=== PATIENT | male | born 1965 ===

== ENCOUNTER 2017-04-29 15:02 | Emergency (ER) | payer OTHER ==
[2017-04-29] MEDS ORDERED: Morphine 4 MG/ML VIAL ONE (15:06)
[2017-04-29] MEDS ORDERED: Lidocaine 1% w Epi 1:100,000 Inj ONE (15:09)
[2017-04-29 15:27] VITALS: TEMP 98.2
[2017-04-29] MEDS ORDERED: Sodium Chloride 0.9% 2,000 ML IV ONE (15:49)
[2017-04-29] MEDS ORDERED: TDAP Vaccine 0.5 mL Syr IM ONE (15:51)
[2017-04-29] MEDS ORDERED: Morphine 4 MG/ML VIAL IVP STA (15:53)
[2017-04-29] MEDS ORDERED: ceFAZolin 1 GM in Sodium Chloride 0.9% 100 ML IVPB STA (16:06)
[2017-04-29] MEDS ORDERED: Hydrogen Peroxide 3% Soln (480ml) TP ONE (16:08)
--- NOTE | 2017-04-29 16:23 | ED PDOC ---
Upper Extremity Pain/Injury <Josue Whitt - Last Filed: 04/29/17 18:40> Chief Complaint (Provider): UE injury History Per: Patient History/Exam Limitations: no limitations Onset/Duration Of Symptoms: Hrs Current Symptoms Are (Timing): Still Present Quality: "Pain" Pain Scale Rating Of: 9 Additional Complaint(s): 51 y/o M with PMhx of HTN presents to ED for a laceration in the R/forearm. 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 HE started bleeding immediately but denies dizziness, LOC, headaches, palpitations, SOB, vomiting or nausea. Denies UE numbness, tingling or weakness. He was transported to our ED and while in the ER, he c/o severe forearm pain and was bleeding profusely from the wound. <Alvaro Jacobo - Last Filed: 04/29/17 19:00> Time Seen by Provider: 04/29/17 16:15 Chief Complaint (Nursing): Upper Extremity Problem/Injury Past Medical History Vital Signs: Last Vital Signs Temp 98.2 F 04/29/17 17:52 Pulse 77 04/29/17 17:52 Resp 18 04/29/17 17:52 BP 139/96 H 04/29/17 17:52 Pulse Ox 99 04/29/17 17:52 <Josue Whitt - Last Filed: 04/29/17 18:40> Reviewed: Historical Data, Nursing Documentation Vital Signs: Last Vital Signs Temp 98.2 F 04/29/17 15:25 Pulse 74 04/29/17 16:09 Resp 12 04/29/17 16:09 BP 146/96 H 04/29/17 16:09 Pulse Ox 99 04/29/17 16:09 - Medical History PMH: HTN - Surgical History Other surgeries: L/Chest Sx after [employer] accident - Family History Family History: States: No Known Family Hx <Alvaro Jacobo - Last Filed: 04/29/17 19:00> - Home Medications Home Medications: Ambulatory Orders Medication Instructions Recorded Cephalexin [Keflex] 500 mg PO QID 10 Days 04/29/17 oxyCODONE/Acetaminophen [Percocet 1 tab PO QID PRN #16 tab 04/29/17 5/325 mg Tab] - Allergies Allergies/Adverse Reactions: Allergies Allergy/AdvReac Type Severity Reaction Status Date / Time No Known Allergies Allergy Verified 04/29/17 15:27 Review of Systems ROS Statement: Except As Marked, All Systems Reviewed And Found Negative Musculoskeletal: Positive for: Arm Pain Skin: Positive for: Lesions (Forearm laceration with bleeding) <Alvaro Jacobo - Last Filed: 04/29/17 19:00> Physical Exam - Reviewed Nursing Documentation Reviewed: Yes Vital Signs Reviewed: Yes - Physical Exam Appears: Positive for: Uncomfortable, In Acute Distress Head Exam: Positive for: ATRAUMATIC, NORMAL INSPECTION Eye Exam: Positive for: EOMI, PERRL Cardiovascular/Chest: Positive for: Regular Rate, Rhythm. Negative for: Gallop , Murmur Respiratory: Positive for: Normal Breath Sounds. Negative for: Crackles, Wheezing Gastrointestinal/Abdominal: Positive for: Soft. Negative for: Tenderness Extremity: Positive for: Other (9 cm R/forearm linear deep laceration, actively bleeding with damaged artery) <Alvaro Jacobo - Last Filed: 04/29/17 19:00> - Laboratory Results Result Diagrams: 04/29/17 18:03 04/29/17 15:10 <Josue Whitt - Last Filed: 04/29/17 18:40> - Laboratory Results Result Diagrams: 04/29/17 18:03 04/29/17 15:10 - ECG O2 Sat by Pulse Oximetry: 99 - Progress ED Course And Treament: Patient laceration repaired. Patient tolerated well procedure MOrphine IV and Percocet PO were given for pain in 2 different occasions. Repeat Hgb 12 NO Fx seen of Xray Patient DC home with PO abx and pain meds F/U with PMD as outpatient and for suture removal <Alvaro Jacobo - Last Filed: 04/29/17 19:00> Medical Decision Making Medical Decision Makin51 y/o M with PMHx of HTN presents for traumatic forearm deep laceration Forearm laceration with arterial injury -IV fluids -Xray -CBC -Morphine 4mg IV for pain -Tetanus prophylaxis vaccine -Laceration repair with deep and superficial sutures -Observation. Will repeat CBC in 4 hours <Alvaro Jacobo - Last Filed: 04/29/17 19:00> Disposition - Patient ED Disposition Is Patient to be Admitted: No Counseled Patient/Family Regarding: Studies Performed, Diagnosis, Need For Followup, Rx Given - Disposition Disposition: Routine/Home Disposition Time: 18:40 <Josue Whitt - Last Filed: 04/29/17 18:40> <Alvaro Jacobo - Last Filed: 04/29/17 19:00> - Clinical Impression Clinical Impression: Laceration of forearm, right - Disposition Referrals: [facility] [Outside] (2 to 3 days) Condition: GOOD Prescriptions: Cephalexin [Keflex] 500 mg PO QID 10 Days oxyCODONE/Acetaminophen [Percocet 5/325 mg Tab] 1 tab PO QID PRN #16 tab PRN Reason: Pain, Moderate (4-7) Forms: [facility] (Bangladeshi) Print Language: VENEZUELAN
[2017-04-29 16:28] LABS: BASO # 0.1 K/uL (0.0-0.2); EOS # 0.3 K/uL (0.0-0.7); EOS % 4.8 % (0.0-4.0); HEMOGLOBIN 13.4 g/dL (12.0-18.0); LYMPH # 2.1 K/uL (1.0-4.3); LYMPH % 34.3 % (20.0-40.0); MEAN CELL VOLUME 89.8 fl (80.0-94.0); MEAN CORPUSCULAR HEMOGLOBIN 29.9 pg (27.0-31.0); MEAN CORPUSCULAR HGB CONC 33.3 g/dL (33.0-37.0); MEAN PLATELET VOLUME 9.1 fl (7.2-11.7); MONO # 0.7 K/uL (0.0-0.8); MONO % 10.8 % (0.0-10.0); NEUT % 49.1 % (50.0-75.0); NRBC % 0.1 % (0.0-0.0); RBC 4.5 Mil/uL (4.40-5.90); RED CELL DISTRIBUTION WIDTH 13.8 % (11.5-14.5)
[2017-04-29 16:56] LABS: BLOOD UREA NITROGEN 18 mg/dl (9-20); CALCIUM 8.6 mg/dL (8.4-10.2); GFR AFRICAN-AMERICAN > 60; GFR NON-AFRICAN AMERICAN > 60
--- NOTE | 2017-04-29 16:59 | RAD ---
PROCEDURE: Radiographs of the Right Forearm HISTORY: right arm trauma COMPARISON: None available. TECHNIQUE: Frontal and lateral views obtained. FINDINGS: BONES: No fracture or destructive lesion. JOINT SPACES: Unremarkable. OTHER FINDINGS: Soft tissue injury ventral aspect of the forearm. No visulaized radiopaque/visualized foreign body. IMPRESSION: Soft tissue swelling, findings suggestive of ventral laceration without acute articular or osseous abnormality.
[2017-04-29 17:10] VITALS: O2SAT 99
[2017-04-29] MEDS ORDERED: Oxycodone/Acetaminophen 5/325 mg Tab PO STA (17:15)
[2017-04-29] MEDS ORDERED: Oxycodone/Acetaminophen 5/325 mg Tab ONE (17:27)
[2017-04-29 17:53] VITALS: RESP 18
[2017-04-29 18:10] LABS: MEAN CELL VOLUME 89.2 fl (80.0-94.0); MEAN CORPUSCULAR HEMOGLOBIN 29.6 pg (27.0-31.0); MEAN CORPUSCULAR HGB CONC 33.2 g/dL (33.0-37.0); RBC 4.04 Mil/uL (4.40-5.90); RED CELL DISTRIBUTION WIDTH 13.7 % (11.5-14.5)
[2017-04-29 19:17] VITALS: BP 138/89; PULSE 79
== END 2017-04-29 19:16 | disposition home or self-care (01) ==
LOC: H.ER 15:02
DX: S51.811A Laceration without foreign body of right forearm, initial encounter (principal); W45.8XXA Other foreign body or object entering through skin, initial encounter; Y93.89 Activity, other specified; Y92.69 Other specified industrial and construction area as the place of occurrence of the external cause; Y99.0 Civilian activity done for income or pay

== ENCOUNTER 2017-04-30 01:27 | Emergency (ER) | payer OTHER, SELFPAY ==
[2017-04-30 01:49] VITALS: BMI 25.6
[2017-04-30 01:54] VITALS: BP 128/81; PULSE 89; RESP 18; TEMP 99.2; O2SAT 98
--- NOTE | 2017-04-30 02:02 | ED PDOC ---
Upper Extremity Pain/Injury Time Seen by Provider: 04/30/17 01:33 Chief Complaint (Nursing): Upper Extremity Problem/Injury Chief Complaint (Provider): Left arm pain, numbness in right 4th and 5th History Per: Patient History/Exam Limitations: no limitations Onset/Duration Of Symptoms: Hrs Current Symptoms Are (Timing): Still Present Additional Complaint(s): Pt was in ER earlier and laceration repair of the right forearm. Pt states he took percocet 2 hours ago but is still in severe pain. Pt states he also feels numbness in the right 4th and 5th digits Past Medical History Reviewed: Historical Data, Nursing Documentation, Vital Signs Vital Signs: Last Vital Signs Temp 99.2 F 04/30/17 01:43 Pulse 89 04/30/17 01:43 Resp 18 04/30/17 01:43 BP 128/81 04/30/17 01:43 Pulse Ox 98 04/30/17 01:43 - Medical History PMH: HTN - Surgical History Surgical History: No Surg Hx - Family History Family History: States: No Known Family Hx - Home Medications Home Medications: Ambulatory Orders Medication Instructions Recorded Cephalexin [Keflex] 500 mg PO QID 10 Days 04/29/17 oxyCODONE/Acetaminophen [Percocet 1 tab PO QID PRN #16 tab 04/29/17 5/325 mg Tab] Ibuprofen [Motrin Tab] 800 mg PO Q6H PRN #20 tab 04/30/17 - Allergies Allergies/Adverse Reactions: Allergies Allergy/AdvReac Type Severity Reaction Status Date / Time No Known Allergies Allergy Verified 04/30/17 01:42 Review of Systems ROS Statement: Except As Marked, All Systems Reviewed And Found Negative Musculoskeletal: Positive for: Arm Pain, Other Skin: Positive for: Other Physical Exam - Reviewed Nursing Documentation Reviewed: Yes Vital Signs Reviewed: Yes - Physical Exam Appears: Positive for: Well, Non-toxic, No Acute Distress Head Exam: Positive for: ATRAUMATIC, NORMAL INSPECTION, NORMOCEPHALIC Skin: Positive for: Normal Color (Dressing was not removed but remain dry and intact, no bleeding through dressing ), Warm Eye Exam: Positive for: Normal appearance ENT: Positive for: Normal ENT Inspection Neck: Positive for: Normal, Painless ROM Respiratory: Negative for: Accessory Muscle Use, Respiratory Distress Pulses-Radial (L): 2+ Pulses-Radial (R): 2+ Back: Positive for: Normal Inspection Extremity: Positive for: Normal ROM (Normal in right hand and wrist. Pt reports forearm pain with wrist ROM), Capillary Refill (Normal ). Negative for: Deformity, Swelling Neurologic/Psych: Positive for: Alert, Oriented - ECG O2 Sat by Pulse Oximetry: 98 Pulse Ox Interpretation: Normal Disposition - Clinical Impression Clinical Impression: Laceration of forearm, right, Neuropathy - Patient ED Disposition Is Patient to be Admitted: No - Disposition Disposition: Routine/Home Disposition Time: 02:12 Condition: GOOD Prescriptions: Ibuprofen [Motrin Tab] 800 mg PO Q6H PRN #20 tab PRN Reason: Pain Instructions: Peripheral Neuropathy (ED) Print Language: FAROESE
== END 2017-04-30 03:03 | disposition home or self-care (01) ==
LOC: H.ER 01:27
DX: G62.9 Polyneuropathy, unspecified (principal); I10 Essential (primary) hypertension

== ENCOUNTER 2017-05-03 10:33 | Emergency (ER) | payer SELFPAY ==
[2017-05-03 10:40] VITALS: BP 137/87; PULSE 73; TEMP 98; O2SAT 98
[2017-05-03 10:41] VITALS: BMI 27.5
--- NOTE | 2017-05-03 11:39 | ED PDOC ---
HPI: Wound Care - HPI Time Seen by Provider: 05/03/17 10:45 Chief Complaint (Nursing): Wound Check Chief Complaint (Provider): WOUND CHECK History Per: Patient (51 Y/O MALE HERE FOR WOUND CHECK FOR FOREARM INJURY THAT OCCURRED 04/29/2017 FROM [place]. HAD ARTERIAL REPAIR AT THAT TIME AND HAS BEEN ON ORAL ANTIBIOTICS. PATIENT NOTES NUMBNESS AND WEAKNESS ALONG 4/5 DIGITS. HAS OLD INJURY YOUTH WITH FOURTH AND FIFTH DIGITS WITH DIFFICULTY FULL EXTENSION AT DIP.) Past Medical History Reviewed: Historical Data, Nursing Documentation, Vital Signs Vital Signs: Last Vital Signs Temp 98 F 05/03/17 10:38 Pulse 73 05/03/17 10:38 Resp BP 137/87 05/03/17 10:38 Pulse Ox 98 05/03/17 10:38 - Medical History PMH: HTN - Family History Family History: States: No Known Family Hx - Home Medications Home Medications: Ambulatory Orders Medication Instructions Recorded Cephalexin [Keflex] 500 mg PO QID 10 Days 04/29/17 oxyCODONE/Acetaminophen [Percocet 1 tab PO QID PRN #16 tab 04/29/17 5/325 mg Tab] Ibuprofen [Motrin Tab] 800 mg PO Q6H PRN #20 tab 04/30/17 - Allergies Allergies/Adverse Reactions: Allergies Allergy/AdvReac Type Severity Reaction Status Date / Time No Known Allergies Allergy Verified 04/30/17 01:42 Review of Systems ROS Statement: Except As Marked, All Systems Reviewed And Found Negative Physical Exam - Reviewed Nursing Documentation Reviewed: Yes Vital Signs Reviewed: Yes - Physical Exam Appears: Positive for: Well, Non-toxic, No Acute Distress Head Exam: Positive for: ATRAUMATIC, NORMAL INSPECTION, NORMOCEPHALIC Skin: Positive for: Normal Color, Warm, DRY Eye Exam: Positive for: EOMI, Normal appearance, PERRL ENT: Positive for: Normal ENT Inspection Neck: Positive for: Normal, Painless ROM Cardiovascular/Chest: Positive for: Regular Rate, Rhythm Respiratory: Positive for: CNT, Normal Breath Sounds Gastrointestinal/Abdominal: Positive for: Normal Exam, Bowel Sounds, Soft Back: Positive for: Normal Inspection Extremity: Positive for: Other (9 CM WOUND SUTURED WELL HEALING VOLAR SURFACE OF FOREARM. LACK OF SENSATION NOTED FOURTH/FIFTH DIGIT. PATIENT NOTED WITH INTERROSEUS WEAKNESS WITH ADDUCTION/ABDUCTION OF DIGITS. HAS DIFFICULTY WITH FULL EXTENSION OF FOURTH AND FIFTH DIGIT (OLD INJURY TO DIP BOTH DIGITS PER PATIENT).). Negative for: Normal ROM Neurologic/Psych: Positive for: Alert, Oriented - ECG O2 Sat by Pulse Oximetry: 98 - Progress ED Course And Treament: DUPLEX: TRIPHASIC WAVE NOTED THROUGHTOUT ARM NO SIGNS OF ARTERIAL INJURY D/W DR. FRITZ D/W DR. DOMINGUEZ. PLACED IN ULNAR GUTTER SPLINT. D/W FAMILY MED RESIDENT FOR ORTHO CLINIC F/U. APPT FOR MAY 17 2:20PM WITH DR. GONSALEZ PATIENT WILL F/U WITH [facility]. Disposition - Clinical Impression Clinical Impression: Ulnar nerve injury - Patient ED Disposition Is Patient to be Admitted: No - Disposition Referrals: [facility] [Outside] [facility] [Outside] Disposition: Routine/Home Disposition Time: 15:55 Condition: FAIR Additional Instructions: TIENE INGA MATT 2:20PM EN TARDE CON DR. GONSALEZ PARA OBTENER INGA REFERIDA PARA ORTEPEDISTA NECESITA HACER INGA MATT [facility] PARA INGA REFEREDA PARA NEUROLOGICO. REGRESA EN 7 SCHILLING PARA QUITAR PUNTOS Instructions: Paresthesia (ED), Acute Wound Care (ED) Forms: [facility] (Montenegrin), [employer] [facility] (Estonian) Print Language: ALGERIAN
--- NOTE | 2017-05-03 14:38 | US ---
PROCEDURE: HISTORY: EVALUATE FOR ARTERIAL INJURY ULNAR/RADIAL COMPARISON: None available. TECHNIQUE: Grayscale and duplex Doppler evaluation of the right upper extremity was performed. Report prepared by cath lab radiological technologist. FINDINGS: RIGHT UPPER EXTREMITY: * Prox SCA : Peak Systolic Velocity - 76.1: Doppler Waveform: Triphasic.: * Axillary: Peak Systolic Velocity - 86.1: Doppler Waveform: Triphasic.: * Brachial o Proximal Segment: Peak Systolic Velocity - 55.9: Doppler Waveform: Triphasic.: * Radial o Proximal Segment: Peak Systolic Velocity - 66.0: Doppler Waveform: Triphasic.: * Ulnar o Proximal Segment: Peak Systolic Velocity - 38.3: Doppler Waveform: Triphasic.: OTHER FINDINGS: None. IMPRESSION: There is no evidence of hemodynamically significant arterial insufficiency in right upper extremity.
== END 2017-05-03 16:31 | disposition home or self-care (01) ==
LOC: H.ER 10:33
DX: S54.01XD Injury of ulnar nerve at forearm level, right arm, subsequent encounter (principal); W26.9XXD Contact with unspecified sharp object(s), subsequent encounter; Z48.01 Encounter for change or removal of surgical wound dressing

== ENCOUNTER 2017-05-10 09:24 | Emergency (ER) | payer SELFPAY ==
[2017-05-10 09:24] VITALS: BMI 27.5
[2017-05-10 09:57] VITALS: BP 136/65; PULSE 77; RESP 18; TEMP 98; O2SAT 99
--- NOTE | 2017-05-10 10:07 | ED PDOC ---
HPI: Wound Care - HPI Time Seen by Provider: 05/10/17 09:46 Chief Complaint (Nursing): Wound Check Chief Complaint (Provider): Wound check History Per: Patient Exam Limitations: no limitations Onset/Duration Of Symptoms: Days Current Symptoms Are (Timing): Better Location Of Injury: Right: Forearm Additional History Per: Patient Additional Complaint(s): 51 y/o M presents for f/u on R/forearm laceration sustained on 04/29/17 that needed arterial repair and deep and superficial sutures. Patient still c/o occasional numbness in ulnar distribution R/hand and mild weakness with extension of 4th and 5th digits of same hand but this has been present for many years since a previous trauma when he was young. Patient has been taking Ibuprofen for pain but ran out of meds and today c/o moderate intermittent pain in the right wrist. He has appt with Dr Light at [facility] on 05/17/17 and was adviced to go to [facility] for neuro eval, as patient has no health insurance. Denies fever, vomiting, headache, severe pain or skin color changes in the hand and wrist. Past Medical History Reviewed: Vital Signs Vital Signs: Last Vital Signs Temp 98 F 05/10/17 09:55 Pulse 77 05/10/17 09:55 Resp 18 05/10/17 09:55 BP 136/65 05/10/17 09:55 Pulse Ox 99 05/10/17 09:55 - Medical History PMH: HTN - Family History Family History: States: Unknown Family Hx - Home Medications Home Medications: Ambulatory Orders Medication Instructions Recorded Cephalexin [Keflex] 500 mg PO QID 10 Days 04/29/17 oxyCODONE/Acetaminophen [Percocet 1 tab PO QID PRN #16 tab 04/29/17 5/325 mg Tab] Ibuprofen [Motrin Tab] 800 mg PO Q6H PRN #20 tab 04/30/17 Naproxen [Naprosyn] 500 mg PO BID PRN #15 tablet 05/10/17 - Allergies Allergies/Adverse Reactions: Allergies Allergy/AdvReac Type Severity Reaction Status Date / Time No Known Allergies Allergy Verified 04/30/17 01:42 Review of Systems ROS Statement: Except As Marked, All Systems Reviewed And Found Negative Neurological: Positive for: Numbness (R/hand 4th, 5th digits) Physical Exam - Reviewed Nursing Documentation Reviewed: Yes Vital Signs Reviewed: Yes - Physical Exam Appears: Positive for: Non-toxic, No Acute Distress Head Exam: Positive for: NORMAL INSPECTION Skin: Positive for: Normal Color, Warm Eye Exam: Positive for: EOMI, PERRL Cardiovascular/Chest: Positive for: Regular Rate, Rhythm. Negative for: Gallop Respiratory: Positive for: Normal Breath Sounds. Negative for: Crackles, Wheezing Pulses-Radial (L): 2+ Pulses-Radial (R): 2+ Extremity: Negative for: Tenderness, Deformity, Swelling DTR - Bicep (R): 2+ DTR - Bicep (L): 2+ DTR - Tricep (R): 2+ DTR - Tricep (L): 2+ Neurologic/Psych: Positive for: Alert, Oriented - ECG O2 Sat by Pulse Oximetry: 99 - Progress ED Course And Treament: Dressing and cast(placed last visit) removed. Wound was wet(patient applying Abx ointment daily). No bleeding, drainage. Stitches in place. We proceed to remove stitches, middle of the wound edges weren't well attached superficially. Rest WNL. Dermabond applied to middle 3rd of the wound. Disposition - Clinical Impression Clinical Impression: Encounter for wound re-check - Patient ED Disposition Is Patient to be Admitted: No Counseled Patient/Family Regarding: Need For Followup - Disposition Disposition: Routine/Home Disposition Time: 10:35 Condition: GOOD Additional Instructions: Tiene daniel en [facility] 05/17/[address] Light. Puede ir a [facility] para ser evaluado por neurologo. Pudiera ser referido a [facility] en william de ser necesario, luego de daniel en [facility]. Mantenga herida seca Evite levantar pesos Hacer ejercisios en las antonio y lacho para prevenir rigidez y acelerar proceso de recuperacion. Prescriptions: Naproxen [Naprosyn] 500 mg PO BID PRN #15 tablet PRN Reason: Pain, Moderate (4-7) Instructions: Skin Adhesive Care (ED) Forms: [employer] (Uzbek) Print Language: ARMENIAN
== END 2017-05-10 11:05 | disposition home or self-care (01) ==
LOC: H.ER 09:24
DX: Z48.01 Encounter for change or removal of surgical wound dressing (principal)

== ENCOUNTER 2018-01-24 08:53 | Emergency (ER) | payer SELFPAY ==
[2018-01-24 09:05] VITALS: BMI 31.4
--- NOTE | 2018-01-24 10:12 | ED PDOC ---
Lower Extremity Pain/Injury Time Seen by Provider: 01/24/18 09:17 Chief Complaint (Nursing): Lower Extremity Problem/Injury Chief Complaint (Provider): Right knee pain History Per: Patient History/Exam Limitations: no limitations Onset/Duration Of Symptoms: Days (x1 week) Current Symptoms Are (Timing): Still Present Additional Complaint(s): Barrera Sainz is a 52 year old male, with a past medical history of HTN, who presents to the emergency department complaining of right knee pain s/p fall onset x1 week ago. Patient reports he was going down the stairs at home when he missed the last step and accidentally fell, he states he did not land on his knees. Patient further states pain is worst when he's standing. He took Tylenol and wore a knee brace but with no relief of pain. He denies any other injuries or medical complaints. PMD: Jonathon Dewey - Knee Description Of Injury: Fell Past Medical History Reviewed: Historical Data, Nursing Documentation, Vital Signs Vital Signs: Last Vital Signs Temp 97.4 F L 01/24/18 09:13 Pulse 70 01/24/18 09:13 Resp 18 01/24/18 09:13 BP 148/97 H 01/24/18 09:13 Pulse Ox 99 01/24/18 09:13 - Medical History PMH: HTN Denies: Chronic Kidney Disease - Surgical History Surgical History: No Surg Hx - Family History Family History: States: Unknown Family Hx - Social History Current smoker - smoking cessation education provided: No Drugs: Denies - Home Medications Home Medications: Ambulatory Orders Medication Instructions Recorded Metoprolol Succinate 50 mg PO DAILY 09/01/17 Naproxen [Naprosyn] 500 mg PO BID PRN #15 tablet 01/24/18 - Allergies Allergies/Adverse Reactions: Allergies Allergy/AdvReac Type Severity Reaction Status Date / Time No Known Allergies Allergy Verified 07/15/17 19:26 Review of Systems ROS Statement: Except As Marked, All Systems Reviewed And Found Negative Musculoskeletal: Positive for: Leg Pain (right knee) Physical Exam - Reviewed Nursing Documentation Reviewed: Yes Vital Signs Reviewed: Yes - Physical Exam Appears: Positive for: Non-toxic, No Acute Distress Head Exam: Positive for: ATRAUMATIC, NORMOCEPHALIC Skin: Positive for: Normal Color, Warm, Dry Eye Exam: Positive for: Normal appearance Neck: Positive for: Painless ROM Respiratory: Negative for: Respiratory Distress Extremity: Positive for: Normal ROM (lower extremities), Tenderness (minimal medial patellar tenderness). Negative for: Deformity, Swelling Neurologic/Psych: Positive for: Alert, Oriented. Negative for: Motor/Sensory Deficits - ECG O2 Sat by Pulse Oximetry: 99 (RA) Pulse Ox Interpretation: Normal Medical Decision Making Medical Decision Making: Initial Impression: Knee pain Initial Plan: --Knee 3 views RT [RAD] --Toradol 30 mg IM --Reevaluation Scribe Attestation: Documented by Elijah Reynaga, acting as a scribe for Meme Roman MD Provider Scribe Attestation: All medical record entries made by the Scribe were at my direction and personally dictated by me. I have reviewed the chart and agree that the record accurately reflects my personal performance of the history, physical exam, medical decision making, and the department course for this patient. I have also personally directed, reviewed, and agree with the discharge instructions and disposition. Disposition - Clinical Impression Clinical Impression: Knee injury - Disposition Referrals: [facility] [Outside] Disposition: Routine/Home Disposition Time: 11:02 Condition: STABLE Prescriptions: Naproxen [Naprosyn] 500 mg PO BID PRN #15 tablet PRN Reason: Pain, Moderate (4-7) Instructions: Knee Pain Forms: [employer] (Faroese) Print Language: BURMESE
--- NOTE | 2018-01-24 10:42 | RAD ---
PROCEDURE: Right Knee Radiographs. HISTORY: Medial knee pain, s/p injury COMPARISON: None. FINDINGS: BONES: No acute fracture. JOINTS: Tibial femoral compartment narrowing with mild degenerative spurring. JOINT EFFUSION: None. OTHER FINDINGS: None. IMPRESSION: No demonstrated fracture or dislocation. Mild degenerative changes.
[2018-01-24 11:40] VITALS: BP 120/70; PULSE 76; RESP 20; TEMP 98
[2018-01-31 07:21] VITALS: O2SAT 99
== END 2018-01-24 12:12 | disposition home or self-care (01) ==
LOC: H.ER 08:53
DX: S89.91XA Unspecified injury of right lower leg, initial encounter (principal); W10.9XXA Fall (on) (from) unspecified stairs and steps, initial encounter; I10 Essential (primary) hypertension
CPT/HCPCS: 29530; 73562; 96372; 99285; J1885

== ENCOUNTER 2018-06-13 09:14 | Emergency (ER) | payer SELFPAY ==
[2018-06-13 09:15] VITALS: BMI 31.4
[2018-06-13 09:26] VITALS: O2SAT 98
[2018-06-13] MEDS ORDERED: Sodium Chloride 0.9% 1,000 ML IV STA (10:00)
--- NOTE | 2018-06-13 10:03 | ED PDOC ---
HPI: Headache Time Seen by Provider: 06/13/18 09:37 Chief Complaint (Nursing): Headache Chief Complaint (Provider): Headache History Per: Patient History/Exam Limitations: no limitations Onset/Duration Of Symptoms: Days (2 weeks) Additional Complaint(s): Pt. with headache to the back of his head. Is mild and started gradually. No numbness, tingles, weakness, neck pain, facial pain, incontinence, constipation , abd pain, chest pain, dyspnea. No fall. Not the worst pain in his life. did not take any meds for it. Saw pcp for it as well and not given any pain meds. Also has dizziness like room spinning sensation. Past Medical History Reviewed: Nursing Documentation, Vital Signs Vital Signs: Last Vital Signs Temp 97.9 F 06/13/18 09:25 Pulse 61 06/13/18 09:25 Resp 19 06/13/18 09:25 BP 137/87 06/13/18 09:25 Pulse Ox 98 06/13/18 09:25 - Medical History PMH: HTN Denies: Chronic Kidney Disease - Family History Family History: States: Unknown Family Hx - Social History Alcohol: None Drugs: Denies - Immunization History Hx Tetanus Toxoid Vaccination: No Hx Influenza Vaccination: No Hx Pneumococcal Vaccination: No - Home Medications Home Medications: Ambulatory Orders Medication Instructions Recorded RX: Metoprolol Succinate 50 mg PO DAILY 09/01/17 Naproxen [Naprosyn] 500 mg PO BID PRN #15 tablet 01/24/18 RX: Meclizine [Meclizine*] 25 mg PO Q12 PRN #10 tab 06/13/18 - Allergies Allergies/Adverse Reactions: Allergies Allergy/AdvReac Type Severity Reaction Status Date / Time No Known Allergies Allergy Verified 07/15/17 19:26 Review of Systems ROS Statement: Except As Marked, All Systems Reviewed And Found Negative Neurological: Positive for: Headache, Dizziness Physical Exam - Reviewed Nursing Documentation Reviewed: Yes Vital Signs Reviewed: Yes - Physical Exam Appears: Positive for: Non-toxic, No Acute Distress Head Exam: Positive for: ATRAUMATIC, NORMAL INSPECTION, NORMOCEPHALIC Skin: Positive for: Normal Color, Warm, DRY Eye Exam: Positive for: EOMI, Normal appearance, PERRL ENT: Positive for: Normal ENT Inspection Neck: Positive for: Normal, Painless ROM Cardiovascular/Chest: Positive for: Regular Rate, Rhythm Respiratory: Positive for: CNT, Normal Breath Sounds Gastrointestinal/Abdominal: Positive for: Normal Exam, Soft. Negative for: Tenderness Back: Positive for: Normal Inspection. Negative for: L CVA Tenderness, R CVA Tenderness Extremity: Positive for: Normal ROM. Negative for: Tenderness, Pedal Edema Neurologic/Psych: Positive for: Alert, automotive parts coordinator II-XII, Oriented. Negative for: Motor/Sensory Deficits, Aphasia, Facial Droop - Laboratory Results Result Diagrams: 06/13/18 10:15 06/13/18 10:15 Interpretation Of Abn Labs: no acute - ECG ECG: Positive for: Interpreted By Me, Viewed By Me ECG Rhythm: Positive for: Normal QRS, Normal ST Segment, Sinus Rhythm O2 Sat by Pulse Oximetry: 98 Pulse Ox Interpretation: Normal - CT Scan/US ct Other Rad Studies (CT/US): Radiology Report Reviewed Other Rad Interpretation: no acute - Progress ED Course And Treament: 1146: Stable. AAOx3. Pain free. Tolerated po. Fu with pcp. Ambulated with no issues. Disposition - Clinical Impression Clinical Impression: Headache, Dizziness - Patient ED Disposition Is Patient to be Admitted: No Counseled Patient/Family Regarding: Studies Performed, Diagnosis, Need For Followup, Rx Given - Disposition Referrals: [facility] [Outside] - 06/14/18 Disposition: Routine/Home Disposition Time: 11:47 Condition: FAIR Additional Instructions: Return if not better in 3 days. Prescriptions: RX: Meclizine [Meclizine*] 25 mg PO Q12 PRN #10 tab PRN Reason: Dizziness Instructions: Headache, Adult (DC), Vertigo (a Type of Dizziness) Print Language: [place]
[2018-06-13 10:18] LABS: BASO # 0.1 K/uL (0.0-0.2); BASO % 1.2 % (0.0-2.0); EOS # 0.2 K/uL (0.0-0.7); EOS % 3.4 % (0.0-4.0); HEMOGLOBIN 14.5 g/dL (12.0-18.0); LYMPH # 0.9 K/uL (1.0-4.3); LYMPH % 19.8 % (20.0-40.0); MEAN CELL VOLUME 88.4 fl (80.0-94.0); MEAN CORPUSCULAR HEMOGLOBIN 30.9 pg (27.0-31.0); MEAN PLATELET VOLUME 7.6 fl (7.2-11.7); MONO # 0.5 K/uL (0.0-0.8); NEUT # 2.9 K/uL (1.8-7.0); NEUT % 64.6 % (50.0-75.0); NRBC % 0.2 % (0.0-0.0); RBC 4.69 Mil/uL (4.40-5.90); RED CELL DISTRIBUTION WIDTH 13.7 % (11.5-14.5); WHITE BLOOD COUNT 4.4 K/uL (4.8-10.8)
[2018-06-13 10:34] LABS: ALB/GLOB RATIO 1.2 (1.0-2.1); ALBUMIN 4.1 g/dL (3.5-5.0); ALT/SGPT 47 U/L (21-72); AST/SGOT 30 U/L (17-59); BLOOD UREA NITROGEN 17 mg/dl (9-20); GFR NON-AFRICAN AMERICAN > 60
--- NOTE | 2018-06-13 11:16 | CT ---
Date of service: 06/13/2018 PROCEDURE: CT HEAD WITHOUT CONTRAST. HISTORY: headache COMPARISON: Noncontrast head CT 12/01/2016. TECHNIQUE: Axial computed tomography images were obtained through the head/brain without intravenous contrast. Radiation dose: Total exam DLP = 853.71 mGy-cm. This CT exam was performed using one or more of the following dose reduction techniques: Automated exposure control, adjustment of the mA and/or kV according to patient size, and/or use of iterative reconstruction technique. FINDINGS: HEMORRHAGE: No intracranial hemorrhage. BRAIN: Normal wright-white matter differentiation and density are appreciated throughout the cerebrum and cerebellum with the brainstem appearing unremarkable as well. There is no mass effect. There is no suspicious extra-axial fluid collection and the midline brain anatomy appears diffusely unremarkable. No atrophy or chronic microvascular ischemic changes. VENTRICLES: Unremarkable. No hydrocephalus. CALVARIUM: Unremarkable. PARANASAL SINUSES: Unremarkable as visualized. No significant inflammatory changes. MASTOID AIR CELLS: Unremarkable as visualized. No inflammatory changes. OTHER FINDINGS: None. IMPRESSION: Stable unremarkable noncontrast CT of the Head.
[2018-06-13 14:05] VITALS: BP 146/76; PULSE 69; RESP 18; TEMP 98.2
--- NOTE | 2018-06-13 16:18 | CARD ---
APPROVED REPORT Date of service: 06/13/2018 <Conclusion> Sinus bradycardia Otherwise normal ECG
== END 2018-06-13 14:10 | disposition home or self-care (01) ==
LOC: H.ER 09:14
DX: R51 Headache (principal); R42 Dizziness and giddiness; I10 Essential (primary) hypertension
CPT/HCPCS: 70450; 80053; 84484; 85025; 93005; 96360; 99285; J7030